=== PATIENT | female | born 1985 | race Caucasian/White ===

== ENCOUNTER 2023-07-15 01:00 | Emergency (ER) | payer MEDICAID ==
[~2023-07-15] VITALS: Ht 162.6 cm; Wt 59.0 kg
[2023-07-15 01:00] VITALS: BP 114/78; PULSE 93; RESP 17; TEMP 97.6; O2SAT 100
[2023-07-15 01:01] VITALS: BP 109/69; PULSE 91; RESP 15; TEMP 98.1; O2SAT 100
[2023-07-15] MEDS ORDERED: LIDOCAINE/EPI MPF 1%1:200000 30 ML VIAL INJ ONE ×2 (01:14→01:15)
[2023-07-15] MEDS ORDERED: BACITRACIN OINT 500 UNITS/GM PKT TP ONE (01:37)
== END 2023-07-15 01:49 | disposition home or self-care (01) ==
LOC: MED 01:00
DX: S01.412A Laceration without foreign body of left cheek and temporomandibular area, initial encounter (principal); F10.129 Alcohol abuse with intoxication, unspecified; Y90.9 Presence of alcohol in blood, level not specified; Y08.89XA Assault by other specified means, initial encounter; Y93.89 Activity, other specified; Y92.89 Other specified places as the place of occurrence of the external cause; Y99.8 Other external cause status
CPT/HCPCS: 12011; 99283; J2001